=== PATIENT | male | born 1985 | race African-American/Black ===

== ENCOUNTER 2018-09-14 17:53 | Emergency (ER) | payer SELFPAY ==
[~2018-09-14] VITALS: Ht 190.5 cm; Wt 85.3 kg
[2018-09-14 17:57] VITALS: BP 134/83
[2018-09-14] MEDS ORDERED: IBUPROFEN 600 MG TABLET PO ONE ×2 (18:16→18:30)
[2018-09-14] MEDS ORDERED: CEPHALEXIN MONOHYDRATE 500 MG CAPSULE PO ONE ×2 (18:16→18:30)
== END 2018-09-14 18:25 | disposition home or self-care (01) ==
LOC: ER 17:56
DX: L03.317 Cellulitis of buttock (principal)
CPT/HCPCS: 99283; A4606; Z7610